=== PATIENT | male | born 1985 | race Caucasian/White ===

== ENCOUNTER 2018-03-23 00:08 | Emergency (ER) | payer OTHER | END 2018-03-23 04:38 | disposition home or self-care (01) | LOC: M ED 00:08 | DX: S63.501A Unspecified sprain of right wrist, initial encounter (principal); W19.XXXA Unspecified fall, initial encounter; Y92.098 Other place in other non-institutional residence as the place of occurrence of the external cause | CPT/HCPCS: 73110 ==